=== PATIENT | female | born 1955 | race Caucasian/White ===

== ENCOUNTER → 2017-09-03 | Outpatient (CLI) | payer BC ==
--- NOTE | 2017-09-03 12:40 | CT ---
Indication: Dysuria and recurrent UTIs Exam: CT abdomen and pelvis without contrast. Technique: Axial spiral images were obtained from lung bases through the pubic symphysis without cont rast. Coronal and sagittal multiplanar reconstructions were performed. Comparison: None. Findings: The lung bases are clear. The liver is mildly enlarged with fatty replacement throughout th e liver. No focal lesion is seen. The gallbladder, pancreas, and spleen are unremarkable. The adrenal s are normal. The kidneys are normal size with no hydronephrosis, renal stone, or mass. The ureters a re normal caliber. No adenopathy or ascites is seen. The bladder is unremarkable. The uterus has been removed with no adnexal mass or free fluid. There is a small 1.3 cm umbilical hernia with no bowel l oops in the hernia . The mesentery is unremarkable. The bones are intact. No aggressive osseous lesio n is seen. Impression: Mild hepatomegaly with fatty replacement throughout . No acute intra-abdominal abnormality seen No hydronephrosis or renal stones and no urinary obstruction. Status post hysterectomy with no pelvic mass or inflammation . Small umbilical hernia. Reported By:
== END | disposition home or self-care (01) | DRG 696 ==
LOC: RAD 11:14
PROVIDERS: ATTEND Internal Medicine
DX: R30.0 Dysuria (principal); N39.0 Urinary tract infection, site not specified
CPT/HCPCS: 74176